=== PATIENT | female | born 1980 | race Hispanic/Latino ===

== ENCOUNTER → 2018-01-25 | Outpatient (CLI) | payer BC ==
[~2018-01-25] VITALS: Ht 161.3 cm; Wt 67.0 kg
[2018-01-25 10:31] LABS: BASOPHILS % (AUTO) 0.2 % (0.0-5.0); EOSINOPHILS % (AUTO) 1.6 % (0.0-8.0); HEMATOCRIT 38.6 % (36-48); LYMPHOCYTES % (AUTO) 24.5 % (21.0-51.0); MEAN CORPUSCULAR HEMOGLOBIN 29.6 pg (27.0-33.0); MEAN CORPUSCULAR HGB CONC 34.8 g/dL (32.0-36.0); MEAN CORPUSCULAR VOLUME 85.2 fL (79-99); MONOCYTES % (AUTO) 6.4 % (3.0-13.0); NEUTROPHILS % (AUTO) 67.3 % (40.0-77.0); PLATELET COUNT (AUTO) 231 K/uL (130-400); RED BLOOD CELL COUNT(AUTO) 4.53 MIL/uL (4.00-5.50); RED CELL DISTRIBUTION WIDTH 12.4 % (11.0-15.5); WHITE BLOOD COUNT (AUTO) 6.8 K/uL (4.8-10.8)
[2018-01-25 10:40] VITALS: BP 107/53
== END | disposition home or self-care (01) ==
LOC: EDSTATUS 09:30 → DAH 14:31
PROVIDERS: ATTEND Specialist
DX: N87.9 Dysplasia of cervix uteri, unspecified (principal)
CPT/HCPCS: 36415; 84703; 85025

== ENCOUNTER → 2020-08-29 | Outpatient (CLI) | payer BC | END | disposition home or self-care (01) | LOC: RAH 11:15 | PROVIDERS: ATTEND Urology | DX: N39.0 Urinary tract infection, site not specified (principal) | CPT/HCPCS: 76770 ==